=== PATIENT | female | born 2005 | race Caucasian/White ===

== ENCOUNTER 2025-01-24 06:55 | Emergency (ER) | payer OTHER ==
[2025-01-24 07:04] VITALS: TEMP 98.2
--- NOTE | 2025-01-24 07:26 | ED ---
General Adult HPI - General Chief complaint: Urogenital Stated complaint: ABD Pain Time Seen by Provider: 01/24/25 07:01 Source: patient, EMS, RN notes reviewed, old records reviewed Mode of arrival: EMS Limitations: no limitations - History of Present Illness Initial comments: Patient is a 19-year-old female present to the emergency department with concern for pelvic pain. Onset of symptoms was last night. Patient did have some similar episodes a few days prior. Patient was seen at [facility] and transferred here for ultrasound. CT scan showed adnexal lesions/cysts. Patient states that she did have a pelvic exam done there and did have discomfort with it, diffusely. No history of chronic similar symptoms previously. Chart reviewed from [facility]. No fever. No vomiting. No constipation or diarrhea. Last menses was 20 days ago. Patient denies any history. Discomfort is currently rated 5/10. Patient states at onset discomfort was severe. Patient does not feel she needs anything for pain at this time. - Related Data Allergies Allergy/AdvReac Type Severity Reaction Status Date / Time No Known Allergies Allergy Verified 01/24/25 07:00 Review of Systems ROS Statement: Those systems with pertinent positive or pertinent negative responses have been documented in the HPI. ROS Other: All systems not noted in ROS Statement are negative. Constitutional: Denies: fever Eyes: Denies: eye pain ENT: Denies: ear pain Respiratory: Denies: dyspnea Cardiovascular: Denies: chest pain Gastrointestinal: Reports: as per HPI. Denies: vomiting Genitourinary: Denies: dysuria Skin: Denies: rash Neurological: Denies: weakness Past Medical History Past Medical History: No Reported History History of Any Multi-Drug Resistant Organisms: None Reported Past Surgical History: No Surgical Hx Reported Past Psychological History: Anxiety Smoking Status: Vaper Past Alcohol Use History: None Reported Past Drug Use History: None Reported General Exam Limitations: no limitations General appearance: alert, in no apparent distress Head exam: Present: normocephalic Eye exam: Present: normal appearance Neck exam: Present: normal inspection Respiratory exam: Present: normal lung sounds bilaterally Cardiovascular Exam: Present: regular rate, normal rhythm Expanded Peripheral pulses: 2+: Dorsalis Pedis (R), Dorsalis Pedis (L) GI/Abdominal exam: Present: soft, tenderness (Mild to moderate tenderness lower abdomen/pelvic region), normal bowel sounds. Absent: distended, guarding, rebound, rigid, pulsatile mass Extremities exam: Present: normal inspection Neurological exam: Present: alert Psychiatric exam: Present: normal affect, normal mood Skin exam: Present: normal color Course Vital Signs 01/24/25 01/24/25 07:00 09:13 Temperature 98.2 F Pulse Rate 64 57 L Respiratory 18 18 Rate Blood Pressure 104/63 109/57 O2 Sat by Pulse 98 98 Oximetry Medical Decision Making - Medical Decision Making Was pt. sent in by a medical professional or institution (, PA, FLIGHT ENGINEER HELICOPTER, urgent care, hospital, or penitentiary...) When possible be specific @ -Patient was sent from [facility] Did you speak to anyone other than the patient for history (EMS, parent, family, police, friend...)? What history was obtained from this source @ -Family arrives later in provides additional history that patient's cousin had similar symptoms originally diagnosed with polycystic ovary that turned out to be endometrial cancer Did you review nursing and triage notes (agree or disagree)? Why? @ -I reviewed and agree with nursing and triage notes Were old charts reviewed (outside hosp., previous admission, EMS record, old EKG, old radiological studies, urgent care reports/EKG's, penitentiary records)? Report findings @ -No old charts were reviewed Differential Diagnosis (chest pain, altered mental status, abdominal pain women, abdominal pain men, vaginal bleeding, weakness, fever, dyspnea, syncope, headache, dizziness, GI bleed, back pain, seizure, CVA, palpatations, mental health, musculoskeletal)? @ -Differential Abdominal Pain Women: Appendicitis, Cholecystitis, diverticulosis, ischemic bowel, pancreatitis, h epatitis, UTI, gastroenteritis, AAA, incarcerated hernia, bowel obstruction, constipation, inflammatory bowel, hepatitis, peptic ulcer disease, splenic infarction, perforated viscus, vulvitis, ovarian torsion, PID, kidney stone, placenta abruption, this is not meant to be an all-inclusive list EKG interpreted by me (3pts min.). @ -As above X-rays interpreted by me (1pt min.). @ -None done CT interpreted by me (1pt min.). @ -None done U/S interpreted by me (1pt. min.). @ -Ultrasound shows bilateral ovarian changes What testing was considered but not performed or refused? (CT, X-rays, U/S, labs)? Why? @ -None What meds were considered but not given or refused? Why? @ -None Did you discuss the management of the patient with other professionals (professionals i.e. , PA, FLIGHT ENGINEER HELICOPTER, lab, RT, psych nurse, executive secretary social welfare, transmission systems operator, teacher, bank compliance officer, binder caser)? Give summary @ -Case discussed with Dr. Herr who states patient can be discharged and follow-up with her in the office for further testing and care Was smoking cessation discussed for >3mins.? @ -No Was critical care preformed (if so, how long)? @ -No Were there social determinants of health that impacted care today? How? (Homelessness, low income, unemployed, alcoholism, drug addiction, transportation, low edu. Level, literacy, decrease access to med. care, group home, rehab)? @ -No Was there de-escalation of care discussed even if they declined (Discuss DNR or withdrawal of care, Hospice)? DNR status @ -No What co-morbidities impacted this encounter? (DM, HTN, Smoking, COPD, CAD, Cancer, CVA, ARF, Chemo, Hep., AIDS, mental health diagnosis, sleep apnea, morbid obesity)? @ -None Was patient admitted / discharged? Hospital course, mention meds given and route, prescriptions, significant lab abnormalities, going to OR and other pertinent info. @ -Patient presents as transfer with concern for ovarian torsion. No sign of torsion on ultrasound however there is concerning ovarian changes and patient will follow-up with INFORMATICS SCIENTIST for further care. Patient reevaluated. Patient and family updated. Undiagnosed new problem with uncertain prognosis? @ -No Drug Therapy requiring intensive monitoring for toxicity (Heparin, Nitro, Insulin, Cardizem)? @ -No Were any procedures done? @ -No Diagnosis/symptom? @ -Pelvic pain Acute, or Chronic, or Acute on Chronic? @ -Acute Uncomplicated (without systemic symptoms) or Complicated (systemic symptoms)? @ -Default Side effects of treatment? @ -No Exacerbation, Progression, or Severe Exacerbation? @ -No Poses a threat to life or bodily function? How? (Chest pain, [place], CA, pneumonia, PE, COPD, DKA, ARF, appy, cholecystitis, CVA, Diverticulitis, Homicidal, Suicidal, threat to staff... and all critical care pts) @ -No Disposition Clinical Impression: Pelvic pain Disposition: HOME SELF-CARE Condition: Stable Instructions (If sedation given, give patient instructions): Pelvic Pain in Women (ED) Additional Instructions: Please follow-up with Dr. Herr beginning of the week, number provided. This is an important follow-up appointment you do need to see her this upcoming week. Return for fevers, increased pain, bleeding, worsening or changing symptoms or other concerns. Please also follow-up with your primary care physician. Is patient prescribed a controlled substance at d/c from ED?: No Referrals: None,Stated [Primary Care Provider] - 1-2 days Estefani Carl MD [STAFF PHYSICIAN] - 1-2 days Forms: Area PCPs Time of Disposition: 10:25
[2025-01-24 09:16] VITALS: PULSE 57
--- NOTE | 2025-01-24 09:56 | US ---
EXAMINATION TYPE: US transvaginal DATE OF EXAM: 01/24/2025 COMPARISON: NONE CLINICAL INDICATION: Female, 19 years old with history of w doppler, pain; Pain TECHNIQUE: Transvaginal (TV). Doppler imaging: Not performed. FINDINGS: EXAM MEASUREMENTS: Uterus: 8.7 x 3.9 x 5.4 cm Endometrial Stripe: .8 cm Right Ovary: 9.6 x 5.8 x 8.6 cm Left Ovary: 6.9 x 5.5 x 5.7 cm 1. Uterus: Anteverted wnl 2. Endometrium: wnl 3. Right Ovary: Enlarged complex area seen measuring 7.6 x 4.4 x 7.3 cm. 4. Left Ovary: Enlarged hypoechoic area seen measuring 6.1 x 4.3 x 4.7 cm. Spectral, color and waveform doppler imaging shows good arterial and venous flow within the ovaries ; 5. Bilateral Adnexa: wnl 6. Posterior cul-de-sac: wnl Enlarged bilateral ovaries. Left ovary has 6.1 x 4.3 x 4.7 cm fairly homogeneous circumscribed oval l esion with low lying echoes suspicious for endometrioma, O-Rads 2 lesion. Right ovary has nonsimple c yst with internal septations measuring 7.6 cm long axis with some irregularity along the inner wall a nd multiloculated present. IMPRESSION: Satisfactory blood flow to both ovaries. Suspect left-sided endometrioma. Possible right sided hemorrhagic cyst versus cystic mass or neoplasm. Latter O-Rads 4 lesion. Advise gynecology onco logy nonemergent follow-up to further evaluate. O-RADS 2021 [email or web address] [facility], Workstation: [employer], 01/24/2025 9:53 AM
[2025-01-24] MEDS: ACETAMINOPHEN IV (For NPO) 1,000 MG in EMPTY BAG 1 BAG IVPB STA (10:54)
[2025-01-24] MEDS: KETOROLAC 15 MG/ML 1 ML VIAL IVP STA (10:56)
[2025-01-24 11:29] VITALS: BP 106/62; RESP 60
== END 2025-01-24 11:30 | disposition home or self-care (01) ==
LOC: EC 06:55
DX: R10.2 Pelvic and perineal pain (principal); F17.290 Nicotine dependence, other tobacco product, uncomplicated
CPT/HCPCS: 93975; 76830; 99284; 96365; 96375; J0131; J1885